=== PATIENT | male | born 1955 | race Caucasian/White ===

== ENCOUNTER 2020-10-03 11:59 | Emergency (ER) | payer MEDICARE, SELFPAY ==
[2020-10-03] VITALS (10 sets, daily range): BP systolic 148–169; BP diastolic 79–96; PULSE 80–96; RESP 11–24; TEMP 36.4–37.1; O2SAT 94–100
--- NOTE | ~2020-10-03 | XR_ITS ---
EXAMINATION: XR chest 2V EXAM DATE: 10/03/2020 12:26 INDICATION: Chest pain after working in the heat. TECHNIQUE: Frontal and lateral projections of the chest obtained and reviewed. Comparison is made to prior examination from 06/08/2018. FINDINGS: Sternotomy wires are present without findings to suggest sternal dehiscence. The lungs are clear. There are no pleural effusions. The cardiomediastinal silhouette is within normal limits. There is no pneumothorax suspected. The bones and soft tissues are unremarkable. There is no signi ficant interval change. IMPRESSION: No acute cardiopulmonary findings. Reviewed, dictated and finalized at location B.
--- NOTE | 2020-10-03 12:02 | ECG_ITS ---
Measurements Intervals [place] Rate: 89 P: 71 [place]: 129 QRS: 113 QRSD: 120 T: 91 QT: 361 QTc: 440 Interpretive Statements SINUS RHYTHM INCOMPLETE RIGHT BUNDLE BRANCH BLOCK DELAYED PRECORDIAL R/S TRANSITION BORDERLINE T WAVE ABNORMALITY- HIGH LATERAL LEADS BORDERLINE ECG Electronically Signed On 10-03-2020 13:20:00 CDT by Sean Freire D.O.
[2020-10-03 12:59] LABS: Basophils Absolute Auto 0.1 K/mm3 (0.0-0.1); Basophils Percent Auto 0.7 % (0.2-1.2); Eosinophils Absolute Auto 0.2 K/mm3 (0-0.3); Eosinophils Percent Auto 1.4 % (0-4.4); Hematocrit 43.3 % (42.0-52.0); Hemoglobin 14.1 g/dL (14.0-18.0); Immature Granulocyte Absolute 0.11 K/mm3 (0.00-0.031); Immature Granulocyte Percent A 0.8 % (0-0.5); Lymphocytes Percent Auto 9.3 % (18.3-44.2); Mean Corpuscular HGB Conc 32.6 g/dl (32-36); Mean Corpuscular Hemoglobin 26.6 pg (26-34); Mean Corpuscular Volume 81.7 fl (80-100); Monocytes Absolute Auto 0.8 K/mm3 (0.1-0.6); Monocytes Percent Auto 5.4 % (2.6-8.5); Neutrophils Absolute Auto 11.5 K/mm3 (1.3-6.7); Neutrophils Percent Auto 82.4 % (45.5-73.1); Platelet Count Result 246 k/mm3 (150-375); Red Cell Distribution Width 15.8 % (11.5-14.5); White Blood Count 13.9 K/mm3 (4.5-10.0)
[2020-10-03 13:14] LABS: Anion Gap 10 mmol/L (8-16); Blood Urea Nitrogen 15 mg/dL (9-20); Calcium 9.4 mg/dL (8.4-10.2); Carbon Dioxide 23 mmol/L (22-30); Chloride 107 mmol/L (98-107); Estimated CRCL calculation 68 ml/min; Estimated Glomerular Filt Rate > 60; Glucose 119 mg/dL (75-110); Potassium 3.9 mmol/L (3.4-5.0); Sodium 140 mmol/L (137-145)
[2020-10-03 13:18] LABS: INR 0.9
[2020-10-03 13:19] LABS: Partial Thromboplastin Time 27.6 SECONDS (22.3-36.8)
[2020-10-03 13:26] LABS: Troponin I 0.221 ng/mL (0.000-0.034)
--- NOTE | 2020-10-03 13:35 | ED.CHESTPAIN ---
HPI - Chest Pain General Chief Complaint: Chest Pain Stated Complaint: chest pain Time Seen by Provider: 10/03/20 13:27 History of Present Illness HPI narrative: 64 yo male w/ h/o CAD presents to the ED for chest pain. Moderate substernal chest pain radiating to the neck. Started while working outside. Improved modestly with nitro. Given aspirin by EMS. Pain is returning at the time of my evaluation. 10/25. He has had similar anginal pain in the past, although he says that he cannot differentiate it from gas. He sees cardiology at [facility]. Related Data Home Medications Medication Instructions Recorded Confirmed oxycodone-acetaminophen 7.5 mg-325 1 tablet PO Q6H PRN 02/28/20 mg tablet atorvastatin 10/03/20 carvedilol 10/03/20 clopidogrel 10/03/20 lisinopril 10/03/20 meloxicam 10/03/20 oxycodone-acetaminophen 10/03/20 trazodone 10/03/20 Allergies Allergy/AdvReac Type Severity Reaction Status Date / Time No Known Allergies Allergy Verified 10/03/20 14:04 Review of Systems Review of Systems: All systems reviewed & are unremarkable except as noted in HPI and below Constitutional: Constitutional: Denies chills and Denies fever(s) Cardiovascular: Cardiovascular: Reports chest pain and Reports radiating jaw, neck or arm pain Respiratory: Respiratory: Denies dyspnea Gastrointestinal: Gastrointestinal: Denies abdominal pain, Denies nausea and Denies vomiting Genitourinary: Genitourinary: Reports no additional male genitourinary complaints Musculoskeletal: Musculoskeletal: Denies back pain Integumentary/Breasts: Comments: diaphoresis Neurologic: Denies dizziness and Denies weakness [facility] Past Medical History Medical History (Updated 10/03/20 @ 16:11 by Héctor Gonzalez MD) CAD (coronary artery disease) Exam Const: General: no acute distress and alert Orientation/consciousness: patient oriented x3 HENMT: Head: normal to inspection Neck: Neck: normal visual inspection Chest: Chest palpation & inspection: no tenderness Other: sternotomy scar Resp: Effort & Inspection: normal respiratory effort Auscultation: clear to auscultation bilaterally, no rales, no rhonchi and no wheezes Cardio: Jugular venous distension: no JVD Rate: regular rate Rhythm: regular rhythm Heart sounds: no murmurs GI: Inspection: non-distended GI Palp: Yes Soft to palpation and No Tenderness to palpation present (GI) Skin: General skin exam: normal color Neuro: General: patient oriented x3 and moves all extremities Speech: normal speech Extrem: General: no edema Psych: Appearance: well kempt Affect: normal affect Course Vital Signs Vital signs: Vital Signs Temperature 37.1 C 10/03/20 12:27 Pulse Rate 94 10/03/20 12:27 Respiratory Rate 16 10/03/20 12:27 Blood Pressure 163/83 H 10/03/20 12:27 Pulse Oximetry 95 10/03/20 12:27 Temperature 36.6 C 10/03/20 15:23 Pulse Rate 96 10/03/20 15:23 Respiratory Rate 24 H 10/03/20 15:23 Blood Pressure 168/82 H 10/03/20 15:23 Pulse Oximetry 99 10/03/20 15:23 MDM - Chest Pain MDM Narrative Medical decision making narrative: Lateral depressions on EKG. Mild initial troponi elevation. Pateint discussed with Dr. Gonzalez at [facility]. They will accept the transfer. Repeat troponin 5 Lab Data Result diagrams: 10/03/20 12:48 10/03/20 12:48 Labs: Lab Results 10/03/20 10/03/20 10/03/20 Range/Units 12:48 12:48 12:48 WBC 13.9 H (4.5-10.0) K/mm3 RBC 5.30 (4.6-6.20) M/mm3 Hgb 14.1 (14.0-18.0) g/dL Hct 43.3 (42.0-52.0) % MCV 81.7 (80-100) fl MCH 26.6 (26-34) pg MCHC 32.6 (32-36) g/dl RDW 15.8 H (11.5-14.5) % Plt Count 246 (150-375) k/mm3 MPV 11.0 H (7.4-10.4) fl Immature Gran % (Auto) 0.8 H (0-0.5) % Neut % (Auto) 82.4 H (45.5-73.1) % Lymph % (Auto) 9.3 L (18.3-44.2) % [place] % (Auto) 5.4 (2.6-8.5) % Eos % (Auto) 1.4
[2020-10-03] MEDS: NITROGLYCERIN OINTMENT 1 INCH DOSE TRANSDERM (14:07)
[2020-10-03] MEDS: HEPARIN SODIUM 5,000 UNITS/ML VIAL 4000 UNITS IV PUSH (14:07)
[2020-10-03] MEDS: HEPARIN SOD/D5W 100 UNITS/ML 25,000 UNITS/250 ML BAG 9 UNITS IV CONT (14:08)
--- NOTE | 2020-10-03 15:45 | PC.NURSE ---
EDP aware of 's request to speak with him regarding pt condition. and patient over talking each other. DERRICK Ferrell transfer line, given updated report, states bed is ready currently, room 9222.
--- NOTE | 2020-10-03 15:50 | PC.NURSE ---
[facility] accepted transfer to [facility] [id number] trip#[id number]
[2020-10-03] MEDS: MORPHINE SULFATE (*CRX) 4 MG/ML INJ IV PUSH (16:56)
[2020-10-03] MEDS: LABETALOL HCL INJ 100 MG/20 ML VIAL 10 MG IV PUSH (17:01)
--- NOTE | 2020-10-03 18:43 | PC.NURSE ---
Called RN at [facility] to update her on the change in pt's troponin.
== END 2020-10-03 17:55 | disposition short-term general hospital (02) ==
PROVIDERS: Family Medicine; Emergency Provider Emergency Medicine; PCP Family Medicine Adolescent Medicine
DX: I21.4 Non-ST elevation (NSTEMI) myocardial infarction (principal); I25.10 Atherosclerotic heart disease of native coronary artery without angina pectoris; I45.10 Unspecified right bundle-branch block
CPT/HCPCS: 36415; 71046; 80048; 84484; 85025; 85610; 85730; 93005; 96365; 96366; 96375; 99291; A9270; J1644; J2270

== ENCOUNTER 2022-12-22 14:01 | Emergency (ER) | payer MEDICARE, SELFPAY ==
--- NOTE | ~2022-12-22 | XR_ITS ---
EXAMINATION: XR chest 2V Exam Date/Time: 12/22/2022 20:20 CDT HISTORY: productive cough X 5 DAYS Comparison: 10/03/2020. RESULT: Lines, tubes, and devices: Fractured sternotomy wire in stable position. Mediastinal surgical clips. Coronary artery stent. Vascular stent over the aortic arch. Lungs and pleura: Right mid and lower lung reticulonodular opacities. No focal consolidation. No pne umothorax. No pleural effusion. Cardiomediastinal silhouette: Stable. Other: No acute osseous or upper abdominal finding. IMPRESSION: Pulmonary opacities may represent bronchiolitis, as can be seen with atypical infection, asthma, aspi ration, and small airways disease. Reviewed, dictated and finalized at location K. IMPRESSION: Pulmonary opacities may represent bronchiolitis, as can be seen with atypical i nfection, asthma, aspiration, and small airways disease.
[2022-12-22 14:29] VITALS: BP 131/54; PULSE 85; RESP 18; TEMP 36.4; O2SAT 94
--- NOTE | 2022-12-22 18:37 | PC.NURSE ---
pt has been outside multiple times. walking with no resp distress.
[2022-12-22 19:43] VITALS: BP 173/74; PULSE 74; RESP 19; TEMP 36.7; O2SAT 98
[2022-12-22 19:51] VITALS: O2SAT 97
[2022-12-22 20:10] LABS: Basophils Absolute Auto 0.1 K/mm3 (0.0-0.1); Basophils Percent Auto 1.2 % (0.2-1.2); Eosinophils Absolute Auto 0.4 K/mm3 (0-0.3); Eosinophils Percent Auto 3.9 % (0-4.4); Hematocrit 39.6 % (42.0-52.0); Immature Granulocyte Absolute 0.06 K/mm3 (0.00-0.031); Immature Granulocyte Percent A 0.6 % (0-0.5); Lymphocytes Absolute Auto 3.16 K/mm3 (0.9-3.2); Lymphocytes Percent Auto 31.8 % (18.3-44.2); Mean Corpuscular HGB Conc 32.8 g/dl (32-36); Mean Corpuscular Hemoglobin 28.1 pg (26-34); Mean Corpuscular Volume 85.5 fl (80-100); Mean Platelet Volume 10.6 fl (7.4-10.4); Monocytes Absolute Auto 0.5 K/mm3 (0.1-0.6); Monocytes Percent Auto 5.4 % (2.6-8.5); Neutrophils Absolute Auto 5.7 K/mm3 (1.3-6.7); Neutrophils Percent Auto 57.1 % (45.5-73.1); Platelet Count Result 241 k/mm3 (150-375); Red Blood Count 4.63 M/mm3 (4.6-6.20); Red Cell Distribution Width 13.9 % (11.5-14.5); White Blood Count 9.9 K/mm3 (4.5-10.0)
--- NOTE | 2022-12-22 20:13 | ED.URI ---
HPI - URI/Sore Throat General Chief Complaint: Upper Respiratory Infection Stated Complaint: SOB, cough, congestion x 5 days Time Seen by Provider: 12/22/22 19:42 Source: patient Mode of arrival: EMS Limitations: no limitations History of Present Illness HPI Narrative: This is a 67 year old male that presents to the ER for cough. Present over the last 5 days. Reports he has taken a Z pac and been using an inhaler with little relief. Reports he feels congestion in his chest that he can't get out. Denies fever, or shortness of breath. Related Data Home Medications Medication Instructions Recorded Confirmed carvedilol 3.125 mg tablet 10/03/20 05/20/22 sildenafil (pulm.hypertension) 20 10/03/20 05/20/22 mg tablet Allergies Allergy/AdvReac Type Severity Reaction Status Date / Time No Known Allergies Allergy Verified 12/22/22 19:50 Review of Systems Review of Systems: CONSTITUTIONAL: Denies fever ENT: Reports congestion. Denies sore throat CARDIOVASCULAR: Denies chest pain, or edema. RESPIRATORY: Reports cough. Denies dyspnea. All systems reviewed & are unremarkable except as noted in HPI and below PMFSH Past Medical History Medical History CAD (coronary artery disease) Surgical History Surgical History History of coronary artery bypass graft Family History Family History Mother Heart disease Other Hypertension Social History Social History Years smoked: 55 Smoking status: Current every day smoker Tobacco type: e-cigarettes/vaping Second hand tobacco smoke exposure: Yes Alcohol intake: never Substance use: never Substance use type: does not use Living arrangements: with family Occupation/Education: retired Gender identity (if verbalized by the patient): Male Sexual Orientation (if Verbalized by the Patient): Straight or Heterosexual Spiritual care concerns: No Agree to blood products: Yes Exam Narrative: GENERAL: Well-appearing, well-nourished, and in no acute distress. HEAD: Normocephalic, atraumatic. EYES: EOMI. ENT: Nares clear, no rhinorrhea or epistaxis. Mucous membranes moist. Oropharynx without tonsillar hypertrophy exudate or other lesions. Bilateral TMs pearly conn non-bulging NECK: Supple. No adenopathy or masses. CHEST: Clear to auscultation. No respiratory distress. No wheezes rales or rhonchi HEART: Regular rate and rhythm. No murmur heard. Normal peripheral pulses. EXTREMITIES: Normal range of motion. No edema. SKIN: Warm, dry, no rash. NEURO: No focal deficits. Alert and oriented x3. PSYCH: Normal mood and affect Course Course Emergency Course: Patient and family updated on workup and agree with plan of care Vital Signs Vital signs: Vital Signs Temperature 97.6 F 12/22/22 14:29 Pulse Rate 85 12/22/22 14:29 Respiratory Rate 18 12/22/22 14:29 Blood Pressure 131/54 L 12/22/22 14:29 Pulse Oximetry 94 12/22/22 14:29 Oxygen Delivery Room Air 12/22/22 14:29 Temperature 98.1 F 12/22/22 19:43 Pulse Rate 70 12/22/22 21:06 Respiratory Rate 15 12/22/22 21:06 Blood Pressure 147/80 H 12/22/22 21:06 Pulse Oximetry 95 12/22/22 21:06 Oxygen Delivery Room Air 12/22/22 19:51 MDM - URI/Sore Throat MDM Narrative Medical decision making narrative: patient presents to the emergency department for cold symptoms present over the last 5 days. Patient is afebrile and nontoxic appearing. His vitals are stable. Oxygen saturation is normal on room air. CBC is without leukocytosis. Metabolic panel without concerning findings. Chest x-ray shows findings consistent with bronchitis. Patient will be continued on oral steroid. He has albuterol as needed. he is to follow up with p
[2022-12-22 20:19] LABS: Anion Gap 6 mmol/L (8-16); Blood Urea Nitrogen 14 mg/dL (9-20); Calcium 8.2 mg/dL (8.4-10.2); Carbon Dioxide 25 mmol/L (22-30); Chloride 106 mmol/L (98-107); Estimated CRCL calculation 82 ml/min; Estimated Glomerular Filt Rate > 60; Glucose 78 mg/dL (65-110); Potassium 3.9 mmol/L (3.4-5.0); Sodium 137 mmol/L (137-145)
[2022-12-22] MEDS: predniSONE 20 MG TABLET 40 MG PO (20:35)
[2022-12-22 20:46] LABS: Influenza A QL RT-PCR Negative (Negative); Influenza B QL RT-PCR Negative (Negative); SARS-CoV-2 RNA PCR Negative (Negative)
[2022-12-22 21:06] VITALS: BP 147/80; PULSE 70; RESP 15; O2SAT 95
[2022-12-22 22:41] VITALS: BP 154/75; PULSE 79; RESP 20; O2SAT 100
== END 2022-12-22 22:40 | disposition home or self-care (01) ==
PROVIDERS: Emergency Provider Physician Assistant; PCP Family Medicine Adolescent Medicine
DX: J40 Bronchitis, not specified as acute or chronic (principal); I25.10 Atherosclerotic heart disease of native coronary artery without angina pectoris; F17.290 Nicotine dependence, other tobacco product, uncomplicated; Z95.1 Presence of aortocoronary bypass graft
CPT/HCPCS: 36415; 71046; 80048; 85025; 87636; 99283; J7512

== ENCOUNTER → 2023-01-26 09:25 | Outpatient (CLI) | payer MEDICARE, SELFPAY ==
--- NOTE | ~2023-01-26 | XR_ITS ---
EXAMINATION: XR finger 1st RT min 2V DATE: 01/26/2023 09:50 INDICATION: Right thumb injury. TECHNIQUE: 3 views of right thumb were obtained. COMPARISON: None. FINDINGS: There is hyperextension of first metacarpophalangeal joint. There is heterotopic ossificati on dorsal to base of first distal phalanx. There is severe osteoarthritis of first carpometacarpal soni int and mild osteoarthritis of first metacarpophalangeal joint and first interphalangeal joint. IMPRESSION: 1. Hyperextension of first metacarpophalangeal joint. 2. Heterotopic ossification dorsal to base of first distal phalanx, which may be an acute avulsion fr acture or a chronic finding. 3. Polyarticular osteoarthritis. Reviewed, dictated and finalized at location A. IMPRESSION: 1. Hyperextension of first metacarpophalangeal joint. 2. Heterotopic ossification dorsal to base of first distal phalanx, which may b e an acute avulsion fracture or a chronic finding. 3. Polyarticular osteoarthritis.
== END ==
PROVIDERS: PCP Family Medicine Adolescent Medicine; Visit Provider Family Medicine Adolescent Medicine
DX: S69.91XA Unspecified injury of right wrist, hand and finger(s), initial encounter (principal); M15.9 Polyosteoarthritis, unspecified
CPT/HCPCS: 73140

== ENCOUNTER 2025-03-07 15:19 | Emergency (ER) | payer MEDICARE, SELFPAY ==
[2025-03-07] VITALS (11 sets, daily range): BP systolic 119–133; BP diastolic 51–67; PULSE 78–97; RESP 16–26; TEMP 36.9–37; O2SAT 94–98
--- NOTE | ~2025-03-07 | CT_ITS ---
CT abdomen pelvis w con Clinical History: RLQ pain x3d . Comparison: CT abdomen and pelvis 02/13/2017 Technique: Axial images lung bases to symphysis pubis 100 mL Omnipaque 350 Coronal, sagittal reformats CT images acquired with automatic exposure control for dose reduction DLP: 272 mGy-cm Findings: Lung bases: Scarring. Visualized heart and pericardium: Unremarkable. Liver: Steatosis. Gallbladder: Unremarkable. Spleen: Unremarkable. Pancreas: Unremarkable. Adrenal glands: Unremarkable. Kidneys: Right kidney- No hydronephrosis. No renal stones. Left kidney- No hydronephrosis. No renal stones. Distal esophagus/stomach: Unremarkable. Small bowel loops: Normal caliber and wall thickness. Colon: Wall thickening of right hemicolon. Normal RLQ appendix. Nodes: No enlarged nodes. Peritoneum: No ascites. No free air. Urinary bladder: Mildly distended. Diverticula. Prostate: Unremarkable. Bones: No acute bony abnormality. Soft tissues: Unremarkable. Aorta: No aneurysm or dissection. Atherosclerotic disease. IVC: Unremarkable. Main portal vein/SMV/splenic vein: Patent. IMPRESSION: 1. Colitis right hemicolon. Reviewed, dictated and finalized at location R. RAFT PAINTER IMPRESSION: 1. Colitis right hemicolon.
--- NOTE | 2025-03-07 15:56 | ED_ITS ---
HPI - Abdominal Pain General Chief Complaint: Abdominal Pain <CRICKET Zavaleta Last Filed: 03/07/25 15:57> Stated Complaint: RLQ pain X3 days <CRICKET Zavaleta Last Filed: 03/07/25 15:57> Time Seen by Provider: 03/07/25 15:56 <CRICKET Zavaleta Last Filed: 03/07/25 15:57> Focused HPI: Patient is a 69-year-old male who presents the ED via EMS with report of right lower quadrant abdominal pain. Patient reports having pain for the past 3 days. States pain has been worsening. Present from his umbilical region to his right lower quadrant. Denies nausea, vomiting, diarrhea, constipation. Last bowel was 2 days ago. Has been passing gas. Denies fevers. GENERAL: Well-appearing, well-nourished, and in no acute distress. HEAD: Normocephalic, atraumatic. CHEST: Clear to auscultation. ?No respiratory distress. HEART: Regular rate and rhythm.? ABD: TTP in RLQ, R mid abdomen, periumbilical region. Normoactive BS NEURO: ?Alert and oriented x3. Patient screened in triage and initial orders placed.? ?Additional care and disposition to be based upon?diagnostic testing and treatment. <CRICKET Zavaleta Last Filed: 03/07/25 15:57> Source: patient <CRICKET Zavaleta Last Filed: 03/07/25 15:57> Mode of arrival: EMS <CRICKET Zavaleta Last Filed: 03/07/25 15:57> Limitations: no limitations <CRICKET Zavaleta Last Filed: 03/07/25 15:57> History of Present Illness HPI narrative: Agree with above HPI. <MIGUEL A Byrne Last Filed: 03/08/25 03:19> Related Data Home Medications: Home Medications ?Medication ?Instructions ?Recorded ?Confirmed ?Last Taken ?Type aspirin 81 mg tablet,delayed 81 mg PO DAILY 01/23/24 1 05/07/24 Unknown History release <CRICKET Zavaleta Last Filed: 03/07/25 15:57> Allergies/Adverse Reactions: Allergies Allergy/AdvReac Type Severity Reaction Status Date / Time No Known Allergies Allergy Verified 03/07/25 14:37 <Debbi Metzger PA-C - Last Filed: 03/07/25 15:57> Review of Systems 2 Review of Systems: All systems reviewed & are unremarkable except as noted in HPI and below <MIGUEL A Byrne Last Filed: 03/08/25 03:19> [facility] Past Medical History Medical History: Medical History Essential (primary) hypertension Old myocardial infarction 01/25, 04/01, 10/06 Atherosclerosis of aorta CAD (coronary artery disease) <CRICKET Zavaleta Last Filed: 03/07/25 15:57> Surgical History Surgical History: Surgical History Presence of stent in coronary artery History of coronary artery bypass graft <CRICKET Zavaleta Last Filed: 03/07/25 15:57> Family History Family History: Family History Mother Heart disease Other Hypertension <Debbi Metzger PA-C - Last Filed: 03/07/25 15:57> Social History Social History: Social History Years smoked: 55 Smoking status: Current every day smoker Tobacco type: e-cigarettes/vaping Second hand tobacco smoke exposure: Yes Alcohol intake: never Substance use: never Substance use type: does not use Living arrangements: with family Occupation/Education: retired Gender identity (if verbalized by the patient): Male Sexual Orientation (if Verbalized by the Patient): Straight or Heterosexual Spiritual care concerns: No Agree to blood products: Yes <CRICKET Zavaleta Last Filed: 03/07/25 15:57> Exam 2 Narrative: GENERAL: Well-appearing, well-nourished, and in no acute distress. HEAD: Normocephalic, atraumatic. EYES: PERRLA and EOMI. ENT: Nares clear, no rhinorrhea or epistaxis. Mucous membranes moist. Oropharynx without tonsillar hypertrophy exudate or other lesions. Bilateral TMs pearly conn non-bulging NECK: Supple. No adenopathy or masses. No carotid bruits or JVD CHEST: Clear to auscultation. No respiratory distress. No wheezes rales or rhonchi HEART: Regular rate and rhythm. No murmur heard. Normal peripheral pulses. ABDOMEN:RLQ mild TTP, nondistended, normal active bowel sounds. EXTREMITIES: Normal range of motion. No edema. SKIN: Warm, dry, no rash. NEURO: No focal deficits. Alert and oriented x3. PSYCH: Normal mood and affect <MIGUEL A Byrne - Last Filed: 03/08/25 03:19> Course Vital Signs Vital signs: Vital Signs Temperature 98.4 F 03/07/25 15:48 Pulse Rate 97 03/07/25 15:48 Respiratory Rate 16 03/07/25 15:48 Blood Pressure 123/51 L 03/07/25 15:48 Pulse Oximetry 95 03/07/25 15:48 Oxygen Delivery Room Air 03/07/25 15:48 Temperature 98.6 F 03/07/25 19:45 Pulse Rate 94 03/08/25 01:04 Respiratory Rate 22 H 03/08/25 01:04 Blood Pressure 129/58 L 03/08/25 01:04 Pulse Oximetry 95 03/08/25 01:04 Oxygen Delivery Room Air 03/07/25 22:57 <Debbi Metzger PA-C - Last Filed: 03/07/25 15:57> Vital Signs Temperature 98.4 F 03/07/25 15:48 Pulse Rate 97 03/07/25 15:48 Respiratory Rate 16 03/07/25 15:48 Blood Pressure 123/51 L 03/07/25 15:48 Pulse Oximetry 95 03/07/25 15:48 Oxygen Delivery Room Air 03/07/25 15:48 Temperature 98.6 F 03/07/25 19:45 Pulse Rate 94 03/08/25 01:04 Respiratory Rate 22 H 03/08/25 01:04 Blood Pressure 129/58 L 03/08/25 01:04 Pulse Oximetry 95 03/08/25 01:04 Oxygen Delivery Room Air 03/07/25 22:57 <MIGUEL A Byrne - Last Filed: 03/08/25 03:19> MDM - Abdominal Pain MDM Narrative Medical decision making narrative: MSE by PATRICE in triage. <Debbi Metzger PA-C - Last Filed: 03/07/25 15:57> MSE by PATRICE in triage. Patient is a 69-year-old male who presents the ED via EMS with report of right lower quadrant abdominal pain. Patient reports having pain for the past 3 days. States pain has been worsening. Present from his umbilical region to his right lower quadrant. Denies nausea, vomiting, diarrhea, constipation. Last bowel was 2 days ago. Has been passing gas. Denies fevers. Upon my initial assessment patient appears nontoxic. Vital stable including no fevers. Leukocytosis at 17, other labs WNL. Imaging demonstrates right colonic mural thickening suggesting colitis, infectious or inflammatory. Patient reports no history of IBD. He has not taken any antibiotics recently. He has never had a colonoscopy. Patient declines pain medicine as he states he has plenty at home. Differential diagnosis and treatment plan were discussed with the patient. Patient agrees with discussion and after shared medical decision making agrees with plan of care. Discharged home on Augmentin. All questions were answered to the patient's satisfaction. The patient is appropriate for outpatient treatment and follow-up. Given reasons to return. <MIGUEL A Byrne - Last Filed: 03/08/25 03:19> Medical Records Attestation: I reviewed the patient's medical records. <MIGUEL A Byrne Last Filed: 03/08/25 03:19> Lab Data Attestation: I reviewed the patient's lab results. <MIGUEL A Byrne Last Filed: 03/08/25 03:19> Result diagrams: 03/07/25 19:42 03/07/25 19:42 <Debbi Metzger PA-C - Last Filed: 03/07/25 15:57> Labs: Lab Results 11/20/25 11/20/25 Range/Units 15:54 19:42 WBC 17.5 H (4.5-10.0) K/mm3 RBC 5.07 (4.6-6.20) M/mm3 Hgb 14.1 (14.0-18.0) g/dL Hct 42.0 (42.0-52.0) % MCV 82.8 (80-100) fl MCH 27.8 (26-34) pg MCHC 33.6 (32-36) g/dl RDW 15.2 H (11.5-14.5) % Plt Count 250 (150-375) k/mm3 MPV 10.9 H (7.4-10.4) fl Immature Gran % (Auto) 0.5 (0-0.5) % Neut % (Auto) 78.9 H (45.5-73.1) % Lymph % (Auto) 13.3 L (18.3-44.2) % [place] % (Auto) 3.8 (2.6-8.5) % Eos % (Auto) 2.7 (0-4.4) % Baso % (Auto) 0.8 (0.2-1.2) % Lymph # (Auto) 2.33 (0.9-3.2) K/mm3 [place] # (Auto) 0.7 H (0.1-0.6) K/mm3 Eos # (Auto) 0.5 H (0-0.3) K/mm3 Baso # (Auto) 0.1 (0.0-0.1) K/mm3 Abs Immat Gran (auto) 0.08 H (0.00-0.031) K/mm3 Absolute Neuts (auto) 13.8 H (1.3-6.7) K/mm3 Absolute Nucleated RBC 0.000 (0.0-0.012) K/mm3 Nucleated RBC % 0.0 (0.0-0.2) % Sodium 130 L (137-145) mmol/L Potassium 3.9 (3.4-5.0) mmol/L Chloride 100 (98-107) mmol/L Carbon Dioxide 23 (22-30) mmol/L Anion Gap 7 (4-12) mmol/L BUN 17 (9-20) mg/dL Creatinine 0.91 (0.7-1.3) mg/dL Estim Creat Clear Calc 61 ml/min Estimated GFR > 60 (59 - ) Glucose 117 H (65-110) mg/dL Lactic Acid 0.7 (0.7-2.0) mmol/L Calcium 8.7 (8.4-10.2) mg/dL Total Bilirubin 0.4 (0.2-1.3) mg/dL AST 25 (17-59) U/L ALT 20 (6-50) U/L Alkaline Phosphatase 70 (38-126) U/L Total Protein 7.2 (6.3-8.2) g/dL Albumin 4.2 (3.5-5.1) g/dL Lipase 84 (23-300) U/L Urine Color Yellow (Yellow) Urine Appearance Clear (Clear) Urine pH 6.0 (5.0-9.0) Ur Specific [place] > 1.045 H (1.001-1.035) Urine Protein Negative (Negative) mg/dL Urine Glucose (UA) Negative (Negative) mg/dL Urine Ketones Negative (Negative) mg/dL Ur Blood (Man) Negative (Negative) Urine Nitrate Negative (Negative) Urine Bilirubin Negative (Negative) Urine Urobilinogen 1.0 (<2.0) mg/dL Leukocyte Esterase Rfl Negative (Negative) SRI/UL <Debbi Metzger PA-C - Last Filed: 03/07/25 15:57> Lab Results 03/07/25 03/07/25 Range/Units 15:54 19:42 WBC 17.5 H (4.5-10.0) K/mm3 RBC 5.07 (4.6-6.20) M/mm3 Hgb 14.1 (14.0-18.0) g/dL Hct 42.0 (42.0-52.0) % MCV 82.8 (80-100) fl MCH 27.8 (26-34) pg MCHC 33.6 (32-36) g/dl RDW 15.2 H (11.5-14.5) % Plt Count 250 (150-375) k/mm3 MPV 10.9 H (7.4-10.4) fl Immature Gran % (Auto) 0.5 (0-0.5) % Neut % (Auto) 78.9 H (45.5-73.1) % Lymph % (Auto) 13.3 L (18.3-44.2) % [place] % (Auto) 3.8 (2.6-8.5) % Eos % (Auto) 2.7 (0-4.4) % Baso % (Auto) 0.8 (0.2-1.2) % Lymph # (Auto) 2.33 (0.9-3.2) K/mm3 [place] # (Auto) 0.7 H (0.1-0.6) K/mm3 Eos # (Auto) 0.5 H (0-0.3) K/mm3 Baso # (Auto) 0.1 (0.0-0.1) K/mm3 Abs Immat Gran (auto) 0.08 H (0.00-0.031) K/mm3 Absolute Neuts (auto) 13.8 H (1.3-6.7) K/mm3 Absolute Nucleated RBC 0.000 (0.0-0.012) K/mm3 Nucleated RBC % 0.0 (0.0-0.2) % Sodium 130 L (137-145) mmol/L Potassium 3.9 (3.4-5.0) mmol/L Chloride 100 (98-107) mmol/L Carbon Dioxide 23 (22-30) mmol/L Anion Gap 7 (4-12) mmol/L BUN 17 (9-20) mg/dL Creatinine 0.91 (0.7-1.3) mg/dL Estim Creat Clear Calc 61 ml/min Estimated GFR > 60 (59 - ) Glucose 117 H (65-110) mg/dL Lactic Acid 0.7 (0.7-2.0) mmol/L Calcium 8.7 (8.4-10.2) mg/dL Total Bilirubin 0.4 (0.2-1.3) mg/dL AST 25 (17-59) U/L ALT 20 (6-50) U/L Alkaline Phosphatase 70 (38-126) U/L Total Protein 7.2 (6.3-8.2) g/dL Albumin 4.2 (3.5-5.1) g/dL Lipase 84 (23-300) U/L Urine Color Yellow (Yellow) Urine Appearance Clear (Clear) Urine pH 6.0 (5.0-9.0) Ur Specific [place] > 1.045 H (1.001-1.035) Urine Protein Negative (Negative) mg/dL Urine Glucose (UA) Negative (Negative) mg/dL Urine Ketones Negative (Negative) mg/dL Ur Blood (Man) Negative (Negative) Urine Nitrate Negative (Negative) Urine Bilirubin Negative (Negative) Urine Urobilinogen 1.0 (<2.0) mg/dL Leukocyte Esterase Rfl Negative (Negative) SRI/UL <MIGUEL A Byrne Last Filed: 03/08/25 03:19> Imaging Data Attestation: I personally reviewed and interpreted this imaging study as follows: < MIGUEL A Byrne Last Filed: 03/08/25 03:19> Radiologist's impression: CT abdomen and pelvis impression: Right colonic mural thickening suggesting colitis, infectious or inflammatory. Normal appendix. No bowel obstruction. No free air or ascites. No hydronephrosis or nephrolithiasis. < MIGUEL A Byrne Last Filed: 03/08/25 03:19> Discharge Plan Discharge Clinical Impression: Colitis <CRICKET Zavaleta Last Filed: 03/07/25 15:57> Patient Disposition: Home <CRICKET Zavaleta Last Filed: 03/07/25 15:57> Condition: Stable <CRICKET Zavaleta Last Filed: 03/07/25 15:57> Instructions: Antibiotic Form, Colitis (ED) <CRICKET Zavaleta Last Filed: 03/07/25 15:57> Additional Instructions: May take medications as needed and directed. Increase fluid intake. Stay on bland diet such as rice, applesauce, toast, or crackers. Use over the counter Metamucil for constipation. Follow up with your doctor for further care in the next 3 days. Come back to the emergency department if needed for worsening symptoms, severe pain, fevers, chills, rectal bleeding, or vomiting blood. <CRICKET Zavaleta Last Filed: 03/07/25 15:57> Patient Language: Belarusian <CRICKET Zavaleta Last Filed: 03/07/25 15:57> Prescriptions: New amoxicillin-pot clavulanate [Augmentin] 500-125 mg tablet 1 tablet PO TID Qty: 21 0RF No Action budesonide-formoterol [Symbicort] 80-4.5 mcg/actuation HFA aerosol inhaler 1 inh inhalation Q4-6H PRN (Reason: shortness of breath) Qty: 10.2 1RF Rx Instructions: 1-2 inhalations as needed every 4 hours gabapentin 300 mg capsule 300 mg PO TID Qty: 90 1RF aspirin 81 mg tablet,delayed release (DR/EC) 81 mg PO DAILY lisinopril 10 mg tablet 10 mg PO DAILY Qty: 90 0RF atorvastatin 40 mg tablet 40 mg PO DAILY Qty: 90 1RF fluticasone propionate 50 mcg/actuation spray,suspension 2 spray intranasal DAILY PRN (Reason: nasal congestion) Qty: 16 3RF carvedilol 3.125 mg tablet 3.125 mg PO BID Qty: 180 2RF trazodone 100 mg tablet 100 mg PO QHS Qty: 90 2RF sildenafil 100 mg tablet 100 mg PO DAILY PRN (Reason: sexual activity) Qty: 10 5RF Rx Instructions: administer 30 minutes to 4 hours before activity nitroglycerin 0.4 mg tablet, sublingual 0.4 mg sublingual Q5M PRN (Reason: chest pain) Qty: 25 1RF Rx Instructions: do not exceed 3 doses per episode oxycodone-acetaminophen 7.5-325 mg tablet 1.5 tablet PO TID PRN (Reason: pain) Qty: 135 0RF <Debbi Metzger PA-C - Last Filed: 03/07/25 15:57> Follow-up/Referrals: Rupal Brennan DO [Primary Care Provider, Family Practice] <Debbi Metzger PA-C - Last Filed: 03/07/25 15:57>
--- OUTSIDE RECORDS SUMMARY | 2025-03-07 18:06 | XMS_ITS | Clinical Summary ---
Author Organization 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 Gender Identity Not on file Sexual Orientation Not on file Plan of Treatment Health Maintenance Due Date Last Done Comments Hepatitis C Virus (HCV) Screening 1955 TdaP Immunization 1955 Cologuard 11/22/2000 Colonoscopy 11/22/2000 Colorectal Cancer Screening 11/22/2000 Immunochemical Fecal Occult Blood 11/22/2000 Pneumococcal Immunization (5 0+ years) (1 of 1 - PCV) 11/22/2005 Zoster Immunization (1 of 2) 11/22/2005 Influenza Immunization (#1) 2024 SARS-COV-2 Immunization (2 - 2024- season) 2024 07/18/2020 Respiratory Syncytial Virus (RSV) Immunization (Adult) (1 - 1-dose 75+ series) 11/22/2030 Hepatitis B Immunization Aged Out No longer eligible based on patient's age to complete this topic Human Papillomavirus (HPV) Immunization Aged Out No longer eligible b ased on patient's age to complete this topic Meningococcal Immunization (ACWY) Aged Out No longer eligible based on patient's age to complete this topic Rotavirus Immunization Aged Out No lo nger eligible based on patient's age to complete this topic
--- OUTSIDE RECORDS SUMMARY | 2025-03-07 18:06 | XMS_ITS | Clinical Summary ---
Author Organization [facility] Address [address] [place] [address] Care Team Providers Care Prison Keeper Name Role Phone Unavailable Primary Care Provider Unavailabl e Source Comments [facility],non-owned Affiliates and Associated Physician Practices is amultiple site organization consisting of ambulatory clinics and hospital sitesin [place], [place], [place] and [place]. This disclosure is being madepursuant to the Care Everywhere program and may not contain all information available regarding this patient. 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 Gender Identity Not on file Sexual Orientation Not on file Plan of Treatment Health Maintenance Due Date Last Done Comments COLOGUARD (AGES 45-75) - COL ON CA SCREENING 1955 COLON MONITORING 1955 COLONOSCOPY - COLON CA SCREENING 1955 CT COLONOGRAPHY - COLON CA SCREENING 1955 Colorectal Cancer Screening 1955 FIT - COLON CA SCREENING 1955 FLEX SIG - COLON CA SCREENING 1955 LIPID TESTING 1955 HEPATITIS C SCREENING 11/18/1973 DTAP/TDAP/TD VACCINES (1 - Tdap) 11/22/1974 PNEUMOCOCCAL VACCINE 50+ (1 of 1 - PCV) 11/22/2005 ZOSTER VACCINE (1 of 2) 11/22/2005 DEPRESSION SCREENING 04/18/2024 COVID-19 VACCINE (1 - 2024-2 6 season) 2024 INFLUENZA VACCINE (#1) 2024 Respiratory Syncytial Virus (RSV) Vaccine Pt: or over 60 yrs (1 - 1-dose 75+ series) 11/22/2030 HEPATITIS B VACCINE Aged Out No longe r eligible based on patient's age to complete this topic HIB VACCINE Aged Out No longer eligi ble based on patient's age to complete this topic HPV VACCINE Aged Out No longer eligi ble based on patient's age to complete this topic MENINGOCOCCAL (Group B) VACC INE SHARED DECISION-MAKING Aged Out No longer eligibl e based on patient's age to complete this topic MENINGOCOCCAL GROUPS A/C/Y/W VACCINE Aged Out No longer eligible b ased on patient's age to complete this topic
[2025-03-07 19:52] LABS: Hematocrit 42.0 % (42.0-52.0); Hemoglobin 14.1 g/dL (14.0-18.0); Immature Granulocyte Percent A 0.5 % (0-0.5); Lymphocytes Absolute Auto 2.33 K/mm3 (0.9-3.2); Mean Corpuscular HGB Conc 33.6 g/dl (32-36); Mean Corpuscular Hemoglobin 27.8 pg (26-34); Mean Corpuscular Volume 82.8 fl (80-100); Nucleated Red Blood Cells Absolute Auto 0.000 K/mm3 (0.0-0.012); Nucleated Red Blood Cells Perc 0.0 % (0.0-0.2); Platelet Count Result 250 k/mm3 (150-375); Red Blood Count 5.07 M/mm3 (4.6-6.20); White Blood Count 17.5 K/mm3 (4.5-10.0)
[2025-03-07 20:07] LABS: Alanine Aminotransferase 20 U/L (6-50); Albumin Level 4.2 g/dL (3.5-5.1); Alkaline Phosphatase 70 U/L (38-126); Anion Gap 7 mmol/L (4-12); Aspartate Amino Transferase 25 U/L (17-59); Bilirubin,Total 0.4 mg/dL (0.2-1.3); Blood Urea Nitrogen 17 mg/dL (9-20); Calcium 8.7 mg/dL (8.4-10.2); Carbon Dioxide 23 mmol/L (22-30); Chloride 100 mmol/L (98-107); Estimated CRCL calculation 61 ml/min; Estimated Glomerular Filt Rate > 60; Glucose 117 mg/dL (65-110); Lipase 84 U/L (23-300); Potassium 3.9 mmol/L (3.4-5.0); Sodium 130 mmol/L (137-145); Total Protein 7.2 g/dL (6.3-8.2)
[2025-03-07 23:47] LABS: Add Urine Microscopic? NO; Appearance Urine Clear (Clear); Glucose Urine UA Negative (Negative); Leukocyte Esterase Ur Negative LEU/UL (Negative); Nitrate Urine Negative (Negative); Specific Grav Ur > 1.045 (1.001-1.035)
[2025-03-08] VITALS: PULSE 94; RESP 14; O2SAT 96
[2025-03-08 01:04] VITALS: BP 129/58; PULSE 94; RESP 22; O2SAT 95
== END 2025-03-08 00:53 | disposition home or self-care (01) ==
PROVIDERS: Physician Assistant; PCP Family Medicine
DX: K52.9 Noninfective gastroenteritis and colitis, unspecified (principal); I10 Essential (primary) hypertension; I25.10 Atherosclerotic heart disease of native coronary artery without angina pectoris; I25.2 Old myocardial infarction; F17.290 Nicotine dependence, other tobacco product, uncomplicated
CPT/HCPCS: 36415; 74177; 80053; 81003; 83605; 83690; 85025; 99284; Q9967